=== PATIENT | male | born 1990 | race Caucasian/White ===

== ENCOUNTER 2018-02-21 23:10 | Emergency (ER) | payer OTHER ==
[2018-02-21 23:25] VITALS: O2SAT 100
[2018-02-21 23:27] VITALS: BMI 23.7
[2018-02-22] MEDS ORDERED: Morphine 4 mg/ml ISec IVP STA (00:07)
--- NOTE | 2018-02-22 00:46 | ED PDOC ---
Arrival/HPI - General Chief Complaint: Headache Time Seen by Provider: 02/22/18 00:07 Historian: Patient - History of Present Illness Narrative History of Present Illness (Text): 02/22/18 00:46 28 year old male, with no significant past medical history, presents to the Emergency department complaining of sudden headache to the right occipital area that began this afternoon around 5:30PM. Patient reported he vomited after which made him feel weak and decided to come to the ER for evaluation. He states he has no history of migraines. He also states he never had a CT done, or seen a neurologist before. Patient denies any fevers, chills, chest pain, shortness of breath, abdominal pain, nausea, diarrhea, back pain, neck pain, urinary symptoms, dizziness, or any other complaint. Time/Duration: Other (afternoon (5:30 PM) ) Symptom Onset: Sudden Symptom Course: Unchanged Activities at Onset: Light Context: Home Past Medical History - Provider Review Nursing Documentation Reviewed: Yes - Infectious Disease Hx of Infectious Diseases: None - Cardiac Hx Cardiac Disorders: No - Pulmonary Hx Respiratory Disorders: No - Neurological Hx Migraine: Yes - HEENT Hx HEENT Disorder: No - Renal Hx Renal Disorder: No - Endocrine/Metabolic Hx Endocrine Disorders: No - Hematological/Oncological Hx Blood Disorders: No - Integumentary Hx Dermatological Disorder: No - Musculoskeletal/Rheumatological Hx Musculoskeletal Disorders: No - Gastrointestinal Hx Gastrointestinal Disorders: No - Genitourinary/Gynecological Hx Genitourinary Disorders: No - Psychiatric Hx Psychophysiologic Disorder: No Hx Substance Use: No - Anesthesia Hx Anesthesia: Yes Hx Anesthesia Reactions: No Family/Social History - Physician Review Nursing Documentation Reviewed: Yes Family/Social History: No Known Family HX Smoking Status: Former Smoker Hx Alcohol Use: Yes Hx Substance Use: No Allergies/Home Meds Allergies/Adverse Reactions: Allergies ibuprofen Allergy (Verified 02/21/18 23:28) RASH Review of Systems - Physician Review All systems were reviewed & negative as marked: Yes - Review of Systems Constitutional: absent: Fevers, Other (Chills) Respiratory: absent: SOB Cardiovascular: absent: Chest Pain Gastrointestinal: Vomiting. absent: Abdominal Pain, Diarrhea, Nausea Genitourinary Male: absent: Dysuria, Frequency, Hematuria Musculoskeletal: absent: Back Pain, Neck Pain Neurological: Headache. absent: Dizziness Physical Exam Vital Signs Reviewed: Yes Vital Signs Temp Pulse Resp BP Pulse Ox 02/21/18 23:24 97.7 F 71 18 114/83 100 Temperature: Afebrile Blood Pressure: Normal Pulse: Regular Respiratory Rate: Normal Appearance: Positive for: Well-Appearing, Non-Toxic, Comfortable Pain Distress: None Mental Status: Positive for: Alert and Oriented X 3 - Systems Exam Head: Present: Atraumatic, Normocephalic Pupils: Present: PERRL Extroacular Muscles: Present: EOMI Conjunctiva: Present: Normal Mouth: Present: Moist Mucous Membranes Neck: Present: Normal Range of Motion Respiratory/Chest: Present: Clear to Auscultation, Good Air Exchange. No: Respiratory Distress, Accessory Muscle Use Cardiovascular: Present: Regular Rate and Rhythm, Normal S1, S2. No: Murmurs Abdomen: No: Tenderness, Distention, Peritoneal Signs Back: Present: Normal Inspection Upper Extremity: Present: Normal Inspection. No: Cyanosis, Edema Lower Extremity: Present: Normal Inspection. No: Edema Neurological: Present: GCS=15, CN II-XII Intact, Speech Normal Skin: Present: Warm, Dry, Normal Color. No: Rashes Psychiatric: Present: Alert, Oriented x 3, Normal Insight, Normal Concentration Medical Decision Making ED Course and Treatment: 02/22/18 00:45 Impression: 28 year old male presents complaining of headache to the right occipital area associated with vomiting that began in the afternoon (5:30PM). Plan: -- CT Head w/o Contrast -- Morphine -- Reassess and disposition Progress Notes: EXAM: CT Head Without Intravenous Contrast Dictated and Authenticated by: Camryn Mitchell MD 02/22/2018 2:09 AM IMPRESSION: No evidence of acute intracranial hemorrhage. No midline shift or hydrocephalus.If symptoms persist, correlation with MRI is advised. 02/22/18 03:13 On re-evaluation, patient feels better and is in no acute distress. I have discussed the results and plan with the patient, who expresses understanding. Patient in agreement with plan to be discharged home. Patient is stable for discharge. Patient was instructed to follow up with physician or return if symptoms worsen or new concerning symptoms arise. - RAD Interpretation Radiology Orders: 02/22/18 00:40 HEAD W/O CONTRAST [CT] Stat - Medication Orders Current Medication Orders: Ondansetron HCl (Zofran Odt) 8 mg PO STAT STA Stop: 02/22/18 03:06 Oxycodone/Acetaminophen (Percocet 5/325 Mg Tab) 2 tab PO STAT STA Stop: 02/22/18 03:06 Discontinued Medications Morphine Sulfate (Morphine) 4 mg IVP STAT STA Stop: 02/22/18 00:08 Last Admin: 02/22/18 00:23 Dose: 4 mg MAR Pain Assessment Document 02/22/18 00:23 IT (Rec: 02/22/18 00:23 IT [id number]) Pain Reassessment Is this a pain reassessment? No Sleep Is patient sleeping during reassessment? No Presence of Pain Presence of Pain Yes Pain Scale Used Pain Scale Used Numeric IVP Administration Document 02/22/18 00:23 IT (Rec: 02/22/18 00:23 IT [id number]) Charges for Administration # of IVP Administrations 1 - Scribe Statement The provider has reviewed the documentation as recorded by the Ofeliaiblisandro Jaquez Provider Scribe Attestation: All medical record entries made by the Scriblisandro were at my direction and personally dictated by me. I have reviewed the chart and agree that the record accurately reflects my personal performance of the history, physical exam, medical decision making, and the department course for this patient. I have also personally directed, reviewed, and agree with the discharge instructions and disposition. Disposition/Present on Arrival - Present on Arrival Any Indicators Present on Arrival: No History of DVT/PE: No History of Uncontrolled Diabetes: No Urinary Catheter: No History of Decub. Ulcer: No History Surgical Site Infection Following: None - Disposition Have Diagnosis and Disposition been Completed?: Yes Diagnosis: Headache Disposition: HOME/ ROUTINE Disposition Time: 03:06 Patient Plan: Discharge Patient Problems: Current Active Problems Problem Status Onset Headache Acute Condition: GOOD Discharge Instructions (ExitCare): Migraine Headache (DC), Headache, Adult (DC) , Tension Headache (DC) Additional Instructions: [place] - Return to us if worse or new symptoms. See your doctor later this week. Take a day or two off work. Antonino- Dr. Rai Ramirez Forms: [employer] (Mongolian)
[2018-02-22] MEDS ORDERED: Oxycodone/Acetaminophen 5/325 mg Tab PO STA (03:05)
[2018-02-22 04:16] VITALS: BP 105/83; PULSE 70; RESP 17; TEMP 98.2
--- NOTE | 2018-02-22 08:20 | CT ---
PROCEDURE: CT HEAD WITHOUT CONTRAST. HISTORY: Bad Occipital Headache on the right side COMPARISON: None available. TECHNIQUE: Axial computed tomography images were obtained through the head/brain without intravenous contrast. Radiation dose: Total exam DLP = 998 mGy-cm. This CT exam was performed using one or more of the following dose reduction techniques: Automated exposure control, adjustment of the mA and/or kV according to patient size, and/or use of iterative reconstruction technique. FINDINGS: HEMORRHAGE: No intracranial hemorrhage. BRAIN: No mass effect or edema. No atrophy or chronic microvascular ischemic changes. VENTRICLES: Unremarkable. No hydrocephalus. CALVARIUM: Unremarkable. PARANASAL SINUSES: Unremarkable as visualized. No significant inflammatory changes. MASTOID AIR CELLS: Unremarkable as visualized. No inflammatory changes. OTHER FINDINGS: The report concurs with the preliminary [facility] report IMPRESSION: No acute intracranial findings
== END 2018-02-22 04:16 | disposition home or self-care (01) ==
LOC: ED 23:10
DX: R51 Headache (principal); Z87.891 Personal history of nicotine dependence
CPT/HCPCS: 70450; 96374; 99285; J2270

== ENCOUNTER 2018-05-16 09:52 | Emergency (ER) | payer OTHER ==
[2018-05-16 09:52] VITALS: BMI 23.7
[2018-05-16 10:00] VITALS: RESP 18; O2SAT 99
--- NOTE | 2018-05-16 10:45 | ED PDOC ---
Arrival/HPI - General Chief Complaint: Rib Injury Time Seen by Provider: 05/16/18 10:08 Historian: Patient - History of Present Illness Narrative History of Present Illness (Text): 05/16/18 10:36 28yo male with no pmhx who present with complaint of left ribs pain x 2weeks. States while pulling a metal bar two weeks ago, he heard a snapping sound on his left ribs area and has been having pain ever since. Notes that pain is usually worse with deep inspiration or palpation. Did not take any analgesic for pain. Denies cough, chest pain, fever, SOB, any other complaint. Past Medical History - Provider Review Nursing Documentation Reviewed: Yes - Infectious Disease Hx of Infectious Diseases: None - Cardiac Hx Cardiac Disorders: No - Pulmonary Hx Respiratory Disorders: Yes Hx Asthma: Yes - Neurological Hx Neurological Disorder: Yes Hx Migraine: Yes - HEENT Hx HEENT Disorder: No - Renal Hx Renal Disorder: No - Endocrine/Metabolic Hx Endocrine Disorders: No - Hematological/Oncological Hx Blood Disorders: No - Integumentary Hx Dermatological Disorder: No - Musculoskeletal/Rheumatological Hx Musculoskeletal Disorders: No - Gastrointestinal Hx Gastrointestinal Disorders: No - Genitourinary/Gynecological Hx Genitourinary Disorders: No - Psychiatric Hx Psychophysiologic Disorder: Yes Hx Anxiety: Yes Hx Substance Use: No - Surgical History Other/Comment: "surgery for pyloric stenosis as a baby" - Anesthesia Hx Anesthesia: Yes Hx Anesthesia Reactions: No Family/Social History - Physician Review Nursing Documentation Reviewed: Yes Family/Social History: Unknown Family HX Smoking Status: Former Smoker Hx Alcohol Use: No Hx Substance Use: No Allergies/Home Meds Allergies/Adverse Reactions: Allergies ibuprofen Allergy (Verified 02/21/18 23:28) RASH Review of Systems - Physician Review All systems were reviewed & negative as marked: Yes - Review of Systems Constitutional: Normal Eyes: Normal ENT: Normal Respiratory: Normal Cardiovascular: Normal Gastrointestinal: Normal Genitourinary Male: Normal Musculoskeletal: Arthralgias (Left rib) Skin: Normal Neurological: Normal Endocrine: Normal Hemo/Lymphatic: Normal Psychiatric: Normal Physical Exam Vital Signs Reviewed: Yes Vital Signs Temp Pulse Resp BP Pulse Ox 05/16/18 09:54 98.0 F 63 18 124/80 99 Temperature: Afebrile Blood Pressure: Normal Pulse: Regular Respiratory Rate: Normal Appearance: Positive for: Well-Appearing, Non-Toxic, Comfortable Pain Distress: None Mental Status: Positive for: Alert and Oriented X 3 - Systems Exam Head: Present: Atraumatic, Normocephalic Pupils: Present: PERRL Extroacular Muscles: Present: EOMI Conjunctiva: Present: Normal Mouth: Present: Moist Mucous Membranes Neck: Present: Normal Range of Motion Respiratory/Chest: Present: Clear to Auscultation, Good Air Exchange, Tender to Palpation (Focal tenderness over left anterior ribs). No: Respiratory Distress , Accessory Muscle Use, Wheezes, Decreased Breath Sounds, Rales, Retracting, Rhonchi, Tachypneic Cardiovascular: Present: Regular Rate and Rhythm, Normal S1, S2. No: Murmurs Abdomen: No: Tenderness, Distention, Peritoneal Signs Back: Present: Normal Inspection Upper Extremity: Present: Normal Inspection. No: Cyanosis, Edema Lower Extremity: Present: Normal Inspection. No: Edema Neurological: Present: GCS=15, CN II-XII Intact, Speech Normal Skin: Present: Warm, Dry, Normal Color. No: Rashes Psychiatric: Present: Alert, Oriented x 3, Normal Insight, Normal Concentration Medical Decision Making ED Course and Treatment: 05/16/18 12:12 Pt in ED for stated history. He was no hypoxic and in no distress. Left ribs series/CXR IMPRESSION: Unremarkable radiographs of the chest and left ribs. No left rib fracture. His pain was controlled in ED with medication. He will be DC home with tramadol and referred to his PMD - RAD Interpretation Radiology Orders: 05/16/18 10:11 RIBS LEFT & PA CHEST [RAD] Stat - Medication Orders Current Medication Orders: Discontinued Medications Tramadol HCl (Ultram) 50 mg PO STAT STA Stop: 05/16/18 10:12 Last Admin: 05/16/18 10:42 Dose: 50 mg [facility] Pain Assessment Document 05/16/18 10:42 SF (Rec: 05/16/18 10:42 SF [id number]) Pain Reassessment Is this a pain reassessment? Yes Sleep Is patient sleeping during reassessment? No Presence of Pain Presence of Pain Yes Disposition/Present on Arrival - Present on Arrival Any Indicators Present on Arrival: No History of DVT/PE: No History of Uncontrolled Diabetes: No Urinary Catheter: No History of Decub. Ulcer: No History Surgical Site Infection Following: None - Disposition Have Diagnosis and Disposition been Completed?: Yes Diagnosis: Rib sprain Disposition: HOME/ ROUTINE Disposition Time: 12:15 Patient Plan: Discharge Condition: STABLE Discharge Instructions (ExitCare): Bruised Rib Additional Instructions: Follow up with your Doctor Return to ED for any new or worsening symptoms Prescriptions: Baclofen [Lioresal] 20 mg PO BID #12 tab traMADol [Ultram] 50 mg PO TID #12 tab Referrals: Dominick Warren MD [Primary Care Provider] - Follow up with primary Forms: [employer] ([place])
--- NOTE | 2018-05-16 12:12 | RAD ---
Date of service: 05/16/2018 PROCEDURE: Radiographs of the Chest and Left Ribs. HISTORY: rib pain COMPARISON: None available. TECHNIQUE: Frontal radiograph of the chest and multiple oblique radiographs of the left ribs were obtained. FINDINGS: LEFT RIBS: No fracture or focal lesion visualized. LUNGS: Clear. PLEURA: No pneumothorax or pleural fluid. CARDIOVASCULAR: Normal sized heart. No pulmonary vascular congestion. OTHER FINDINGS: None. IMPRESSION: Unremarkable radiographs of the chest and left ribs. No left rib fracture.
[2018-05-16 13:19] VITALS: BP 125/82; PULSE 72; TEMP 98.1
== END 2018-05-16 12:30 | disposition home or self-care (01) ==
LOC: ED 09:52
DX: S23.41XA Sprain of ribs, initial encounter (principal); X50.9XXA Other and unspecified overexertion or strenuous movements or postures, initial encounter; Z87.891 Personal history of nicotine dependence